=== PATIENT | female | born 1990 | race American Indian/Alaskan Native ===

== ENCOUNTER 2019-06-01 12:40 | Emergency (ER) | payer SELFPAY ==
[2019-06-01 14:39] VITALS: BP 114/63
--- NOTE | 2019-06-01 15:31 | Emergency Department Report ---
ED Rash HPI - HPI Chief Complaint: Skin Rash Stated Complaint: NAUSEA, FEVER, BREAKOUT Time Seen by Provider: 06/01/19 15:18 Duration: 3 Days Location: Upper Extremities, Lower Extremities Rash Symptoms: Yes Itching, No Facial Swelling, No Tongue/Oral Swelling, No Breathing Difficulties, No Choking Sensation, No Wheezing/Dyspnea, No Peeling, No Blistering, No Fever, No Lightheaded, No Malaise, No Myalgias Severity: mild, moderate Other History: 28-year-old female who is currently complaining of nausea sensation 1 day and also has been having a rash over her body for the last 4 days. She states that her boyfriend was diagnosed with the fluids and taking [id number] medications for treatment. She reports no documented fever but has been having some fever sensation 14. His rash is continuing to spread and aggravate. She has no known irritants. She reports no wheezing, no shortness of breath, no sweats, no hemoptysis, no hematemesis ED Review of Systems ROS: Stated complaint: NAUSEA, FEVER, BREAKOUT Other details as noted in HPI Comment: All other systems reviewed and negative ED Past Medical Hx - Past Medical History Previous Medical History?: No - Surgical History Past Surgical History?: Yes Additional Surgical History: X 1 - Social History Smoking Status: Current Every Day Smoker Substance Use Type: Alcohol, Marijuana - Medications Home Medications: Home Medications Medication Instructions Recorded Confirmed Last Taken Type Mometasone Furoate [Elocon] 45 gm TP BID #1 cream..g. 06/01/19 Unknown Rx hydrOXYzine HCL [Atarax] 25 mg PO Q6HR PRN #20 tablet 06/01/19 Unknown Rx predniSONE [Deltasone] 50 mg PO QDAY #5 tab 06/01/19 Unknown Rx Rash Exam - Exam General: Vital signs noted. No distress. Alert and acting appropriately. HEENT: No Periorbital Edema, No Conjuctival Injection, No Chemosis, No Perioral Edema, No Tongue Edema, No Uvular Edema, No Compromised Airway, No Drooling Lungs: Yes Good Air Exchange (Normal Breath Sounds), No Wheezes, No Ronchi, No Stridor, No Cough, No Labored Respirations, No Retractions, No Use of Accessory Muscles, No Other Abnormal Lung Sounds Heart: Yes Regular, No Murmur Skin: Yes Urticarial Rash, Yes Maculopapular Rash, Yes Erythema, No Morbilliform rash, No Bulla(e), No Excoriations, No Weeping, No Tenderness, No Edema, No Encrustations Other: Positive: Abdomen Normal, Neurologic Normal, Musculoskeletal Normal ED Course Vital Signs 06/01/19 06/01/19 13:33 14:39 Temperature 98.4 F 98.9 F Pulse Rate 129 H 110 H Respiratory 16 18 Rate Blood Pressure 115/81 Blood Pressure 114/63 [Left] O2 Sat by Pulse 99 100 Oximetry ED Medical Decision Making - Medical Decision Making 28-year-old -[place] female who presents with rash for 4-5 days, consistent with insect bites/ contact reaction. Differential diagnosis includes contact//atopic//eczematous dermatitis, psoriasis,. History and exam findings not consistent with dangerous etiologies of rash such as SJS/TEN, or secondary dangerous causes such as petechial rashes from thrombocytopenia or rickettsial infections. Plan at this time is to treat symptomatically, instruct to follow up with PCP or derm PRN. Critical care attestation.: If time is entered above; I have spent that time in minutes in the direct care of this critically ill patient, excluding procedure time. ED Disposition Clinical Impression: Rash, URI (upper respiratory infection) Disposition: - TO HOME OR SELFCARE Is pt being admited?: No Does the pt Need Aspirin: No Condition: Stable Instructions: Viral Exanthem (ED), Acute Rash (ED) Additional Instructions: Follow up with your Primary Care Doctor within 48-72 hours for further evaluation. Please rest and drink plenty of fluids to remain hydrated. Please wash your hands regularly. Please take Acetaminophen every 6 hours for pain or temp greater than 100. If you have any worsening or continued fever, chills, weakness, nausea, vomiting, abdominal pain return to ED. Prescriptions: hydrOXYzine HCL [Atarax] 25 mg PO Q6HR PRN #20 tablet PRN Reason: Itching predniSONE [Deltasone] 50 mg PO QDAY #5 tab Mometasone Furoate [Elocon] 45 gm TP BID #1 cream..g. Referrals: [facility] [Provider Group] - 3-5 Days
== END 2019-06-01 15:48 | disposition home or self-care (01) ==
LOC: ED 12:40
DX: J06.9 Acute upper respiratory infection, unspecified (principal); R21 Rash and other nonspecific skin eruption; F17.200 Nicotine dependence, unspecified, uncomplicated; F12.10 Cannabis abuse, uncomplicated; Z79.899 Other long term (current) drug therapy
CPT/HCPCS: 99282

== ENCOUNTER 2019-09-13 18:55 | Emergency (ER) | payer SELFPAY ==
--- NOTE | 2019-09-13 20:44 | Event Note ---
ED Screening Note Date of service: 09/13/19 Time: 20:42 ED Screening Note: 28 y o female presents with suprapubic pain x 2 days LMP 08/08/2019 states took preg test and was negative This initial assessment/diagnostic orders/clinical plan/treatment(s) is/are subject to change based on patients health status, clinical progression and re- assessment by fellow clinical providers in the ED. Further treatment and workup at subsequent clinical providers discretion. Patient/guardian urged not to elope from the ED as their condition may be serious if not clinically assessed and managed. Initial orders include: ua, upt
[2019-09-13 20:45] VITALS: BP 119/82
[2019-09-13 21:10] LABS: Bacteria,Urine 1+ /HPF (Negative); Bilirubin,Urine NEG (Negative); Blood,Urine NEG (Negative); Color,Urine Yellow (Yellow); HCG Qualitative,Urine Negative (Negative); Mucus,Urine 2+ /HPF; Protein,Urine <15 mg/dL mg/dL (Negative); Urobilinogen,Urine < 2.0 mg/dL (<2.0)
[2019-09-13] MEDS ORDERED: ONDANSETRON 4 MG/2 ML INJ IV ONE (23:03)
[2019-09-13] MEDS ORDERED: KETOROLAC 30 MG/1 ML INJ IV ONE (23:03)
[2019-09-13] MEDS ORDERED: FAMOTIDINE 20 MG/2 ML INJ IV ONE (23:03)
[2019-09-13] MEDS ORDERED: SODIUM CHLORIDE 0.9% 1000 ML 1,000 ML IV ONE (23:03)
[2019-09-14 00:01] LABS: Basophils # (Auto) 0.1 K/mm3 (0.0-0.1); Basophils % (Auto) 0.7 % (0.0-1.8); Eosinophils # (Auto) 0.1 K/mm3 (0.0-0.4); Eosinophils % (Auto) 1.2 % (0.0-4.3); Hematocrit 33.9 % (30.3-42.9); Hemoglobin 11.5 gm/dl (10.1-14.3); Lymphocytes # (Auto) 2.5 K/mm3 (1.2-5.4); Mean Corpuscular HGB Conc 34 % (30-34); Mean Corpuscular Volume 91 fl (79-97); Monocytes # (Auto) 0.4 K/mm3 (0.0-0.8); Monocytes % (Auto) 5.7 % (0.0-7.3); Platelet Count 275 K/mm3 (140-440); Red Cell Distribution Width 13.9 % (13.2-15.2)
[2019-09-14 00:21] LABS: Alanine Aminotransferase 16 units/L (7-56); Albumin 4.5 g/dL (3.9-5); BUN/Creatinine Ratio 13; Blood Urea Nitrogen 8 mg/dL (7-17); Calcium 8.9 mg/dL (8.4-10.2); Hemolysis Index 2
--- NOTE | 2019-09-14 01:42 | Cat Scan Report ---
CT of the abdomen and pelvis with contrast INDICATION: Abdominal pain and nausea and vomiting today COMPARISON: None FINDINGS: Lung bases are clear. The liver, spleen, pancreas, adrenal glands and kidneys show no abnor malities. No definite gallbladder or biliary tree abnormality. No fluid or adenopathy in the upper ab domen. CT of the pelvis shows a normal appendix. Uterus is retroverted but otherwise normal. No ovarian mass es are seen. There is no free pelvic fluid. No diverticulosis or diverticulitis. No colitis or enteri tis. There is rectus sheath diastasis without definite umbilical hernia. No significant skeletal lesi on. IMPRESSION: Negative study. Automated exposure control was utilized to diminish radiation dose. Signer Name: Watson Walter MD Signed: 09/14/2019 1:37 AM Workstation Name: [id number]
--- NOTE | 2019-09-14 02:46 | Emergency Department Report ---
ED Abdominal Pain HPI - General Chief Complaint: Abdominal Pain Stated Complaint: ABDOMINAL PAIN/NAUSEA Source: patient Mode of arrival: Ambulatory Limitations: No Limitations - History of Present Illness Initial Comments: Patient is a A2 28 yo AA female with no past medical history presents to the ED with complaint of acute onset persistent diffuse abdominal pain worse in the periumbilical area with nausea and vomiting for the last 2 days intermittently. Patient states that her symptoms got worse in the last 8 hours. Patient denies fever, chills, diarrhea, dizziness, chest pain, shortness of breath, dysuria, urinary frequency and urgency, dyspareunia, vaginal discharge, vaginal bleeding, syncope, back pain, diarrhea, headache or lightheadedness, hematochezia or h ematuria. MD Complaint: abdominal pain, other (nausea and vomiting) -: Sudden, days(s) (2) Location: periumbilical Radiation: none Migration to: no migration Severity scale (0 -10): 10 Quality: aching, sharp Consistency: constant Improves With: nothing Worsens With: nothing Associated Symptoms: denies other symptoms, nausea, vomiting, anorexia. denies: diarrhea, fever, chills, constipation, dysuria, hematemesis, melena, hematuria, syncope - Related Data LMP Date: 07/30/19 Previous Rx's Medication Instructions Recorded Last Taken Type Mometasone Furoate [Elocon] 45 gm TP BID #1 cream..g. 06/01/19 Unknown Rx hydrOXYzine HCL [Atarax] 25 mg PO Q6HR PRN #20 tablet 06/01/19 Unknown Rx predniSONE [Deltasone] 50 mg PO QDAY #5 tab 06/01/19 Unknown Rx Dicyclomine [Bentyl] 20 mg PO Q6H PRN #24 tablet 09/14/19 Unknown Rx Ketorolac [Toradol] 10 mg PO Q8H PRN #20 tablet 09/14/19 Unknown Rx Ondansetron [Zofran Odt] 4 mg PO Q6HR PRN #20 tab.rapdis 09/14/19 Unknown Rx Allergies Allergy/AdvReac Type Severity Reaction Status Date / Time No Known Allergies Allergy Unverified 06/01/19 12:41 ED Review of Systems ROS: Stated complaint: ABDOMINAL PAIN/NAUSEA Other details as noted in HPI Constitutional: denies: chills, fever Eyes: denies: eye pain, eye discharge, vision change ENT: denies: ear pain, throat pain Respiratory: denies: cough, shortness of breath, wheezing Cardiovascular: denies: chest pain, palpitations Endocrine: no symptoms reported Gastrointestinal: abdominal pain, nausea, vomiting. denies: diarrhea Genitourinary: denies: urgency, dysuria, discharge Musculoskeletal: denies: back pain, joint swelling, arthralgia Skin: denies: rash, lesions Neurological: denies: headache, weakness, paresthesias Psychiatric: denies: anxiety, depression Hematological/Lymphatic: denies: easy bleeding, easy bruising ED Past Medical Hx - Past Medical History Previous Medical History?: No - Surgical History Past Surgical History?: Yes Additional Surgical History: X 1 - Social History Smoking Status: Never Smoker Substance Use Type: None - Medications Home Medications: Home Medications Medication Instructions Recorded Confirmed Last Taken Type Mometasone Furoate [Elocon] 45 gm TP BID #1 cream..g. 06/01/19 Unknown Rx hydrOXYzine HCL [Atarax] 25 mg PO Q6HR PRN #20 tablet 06/01/19 Unknown Rx predniSONE [Deltasone] 50 mg PO QDAY #5 tab 06/01/19 Unknown Rx Dicyclomine [Bentyl] 20 mg PO Q6H PRN #24 tablet 09/14/19 Unknown Rx Ketorolac [Toradol] 10 mg PO Q8H PRN #20 tablet 09/14/19 Unknown Rx Ondansetron [Zofran Odt] 4 mg PO Q6HR PRN #20 tab.rapdis 09/14/19 Unknown Rx ED Physical Exam - General Limitations: No Limitations General appearance: alert, in no apparent distress - Head Head exam: Present: atraumatic, normocephalic, normal inspection - Eye Eye exam: Present: normal appearance, PERRL, EOMI Pupils: Present: normal accommodation - ENT ENT exam: Present: normal exam, normal orophraynx, mucous membranes moist, TM's normal bilaterally, normal external ear exam - Neck Neck exam: Present: normal inspection, full ROM. Absent: tenderness - Respiratory Respiratory exam: Present: normal lung sounds bilaterally. Absent: respiratory distress, wheezes, rhonchi, prolonged expiratory - Cardiovascular Cardiovascular Exam: Present: regular rate, normal rhythm, normal heart sounds. Absent: systolic murmur, diastolic murmur, rubs, gallop - GI/Abdominal GI/Abdominal exam: Present: soft, tenderness (periumbilical ), normal bowel sounds. Absent: guarding, rebound, hyperactive bowel sounds, hypoactive bowel sounds, organomegaly - Extremities Exam Extremities exam: Present: normal inspection, full ROM, normal capillary refill - Back Exam Back exam: Present: normal inspection, full ROM. Absent: tenderness, CVA tenderness (R), CVA tenderness (L), muscle spasm, paraspinal tenderness, vertebral tenderness - Neurological Exam Neurological exam: Present: alert, oriented X3, CN II-XII intact, normal gait, reflexes normal - Psychiatric Psychiatric exam: Present: normal affect, normal mood - Skin Skin exam: Present: warm, dry, intact, normal color. Absent: rash ED Course Vital Signs 09/13/19 20:42 Temperature 97.9 F Pulse Rate 85 Respiratory 18 Rate Blood Pressure 119/82 O2 Sat by Pulse 100 Oximetry ED Medical Decision Making - Lab Data Result diagrams: 09/13/19 23:24 09/13/19 23:24 - Radiology Data Radiology results: report reviewed, image reviewed Abdomen pelvis CT scan with contrast showed no acute abnormalities. The appendix is normal. - Medical Decision Making This is a 28-year-old -Citizen Of [place] female who presented to the ED with acute onset persistent nausea and vomiting and periumbilical pain for 2 days. In the ED, patient is alert and oriented x3 and is not in distress. Lab test results were reviewed and are all nonactionable. Patient was treated for pain and nausea and vomiting and also given normal saline 1 L IV bolus. On reevaluation, patient's symptoms have resolved, patient has not had any nausea or vomiting while in the ED and the pain is resolved with medications. Patient was discharged home on medications and advised to follow-up with her primary care physician in 5 to 7 days for reevaluation. Patient was advised also to maintain a clear liquid diet for 12 to 24 hours. Patient was advised to return to the ED immediately if symptoms get worse. Based on the patient's history and physical exam findings, lab test results and imaging reports, patient symptoms likely viral in etiology since all test results are unremarkable. - Differential Diagnosis Appendicitis; Ovarian cyst; UTI; PID; Uterine Fibroid Critical care attestation.: If time is entered above; I have spent that time in minutes in the direct care of this critically ill patient, excluding procedure time. ED Disposition Clinical Impression: Abdominal pain, periumbilic, Nausea and vomiting in adult, Viral gastroenteritis Disposition: TO HOME OR SELFCARE Is pt being admited?: No Does the pt Need Aspirin: No Condition: Stable Instructions: Abdominal Pain (ED), Acute Nausea and Vomiting (ED), Gastroe nteritis (ED) Additional Instructions: Maintain a clear liquid diet for 12-24 hrs, take medications and drink plenty of fluids. Follow-up with your sales account leader in 5 to 7 days for reevaluation. Return to the ED immediately if symptoms get worse. Prescriptions: Dicyclomine [Bentyl] 20 mg PO Q6H PRN #24 tablet PRN Reason: Pain , Severe (7-10) Ketorolac [Toradol] 10 mg PO Q8H PRN #20 tablet PRN Reason: Pain Ondansetron [Zofran Odt] 4 mg PO Q6HR PRN #20 tab.rapdis PRN Reason: Nausea Referrals: [facility] [Outside] - 7-10 days Forms: Work/School Release Form(ED) Time of Disposition: 02:50 Print Language: SAMMARINESE
== END 2019-09-14 03:17 | disposition home or self-care (01) ==
LOC: ED 18:55
DX: A08.4 Viral intestinal infection, unspecified (principal); R11.2 Nausea with vomiting, unspecified; R10.33 Periumbilical pain; Z79.899 Other long term (current) drug therapy; Z98.890 Other specified postprocedural states
CPT/HCPCS: 36415; 74177; 80053; 81001; 81025; 83690; 85025; 96361; 96374; 96375; 99284; J1885; J2405; J7030; Q9967